=== PATIENT | male | born 1990 | race Two or more races ===

== ENCOUNTER 2018-09-04 12:27 | Emergency (ER) | payer SELFPAY ==
[~2018-09-04] VITALS: Ht 180.3 cm; Wt 79.4 kg
[2018-09-04] MEDS ORDERED: ONDANSETRON PF 4 MG/2 ML VIAL. ONE (13:13)
[2018-09-04] MEDS ORDERED: ONDANSETRON PF 4 MG/2 ML VIAL. IV ONE (13:15)
[2018-09-04] MEDS ORDERED: fentaNYL PF VIAL 100 MCG/2 ML VIAL IV ONE (13:15)
[2018-09-04] MEDS ORDERED: IV NORMAL SALINE 1000ML BAG 1,000 ML IV ONE (13:15)
[2018-09-04] MEDS ORDERED: KETOROLAC 15 MG/ML VIAL. IV ONE (13:15)
--- NOTE | 2018-09-04 13:20 | PHYS DOC ---
Past Medical History Past Medical History: No Pertinent History Past Surgical History: No Surgical History Alcohol Use: Occasionally Drug Use: None Adult General Chief Complaint Chief Complaint: SORE THROAT HPI HPI 28 y/o male was sent to ER from local clinic for further eval. for peritonsillar abscess. Pt has muffled voice and reports for past 3 days he has had increased throat pain/swelling with fever. Pt was given tylenol 650mg suppository at clinic at 1150 a.m. for fever as he was having difficulty swallowing. Review of Systems Review of Systems Constitutional: Reports fever/chills with generalized fatigue Eyes: Denies change in visual acuity, redness, or eye pain [] HENT: Denies nasal congestion/ear pain or pressure. Reports throat pain/ swelling with difficulty swallowing d/t pain and swelling Respiratory: Denies cough or shortness of breath [] Cardiovascular: Denies CP/palpitations GI: Denies abdominal pain, nausea, vomiting, bloody stools or diarrhea [] : Denies dysuria or hematuria [] Musculoskeletal: Denies back/neck pain or stiffness or joint pain [] Integument: Denies rash or skin lesions [] Neurologic: Denies headache, focal weakness or sensory changes. Denies dizziness All other systems were reviewed and found to be within normal limits, except as documented in this note. Current Medications Current Medications Current Medications Medications (Trade) Dose Ordered Sig/Dina Start Time Stop Time Status Last Admin Dose Admin Clindamycin Phosphate 50 ml @ 100 mls/hr 1X ONCE 09/04/18 13:30 09/04/18 13:59 DC 09/04/18 13:34 100 MLS/HR Fentanyl Citrate (Fentanyl 2ml Vial) 25 mcg 1X ONCE 09/04/18 13:15 09/04/18 13:19 DC 09/04/18 13:29 25 MCG Info (CONTRAST GIVEN -- Rx MONITORING) 1 each PRN DAILY PRN 09/04/18 14:00 09/04/18 16:59 DC Iohexol (Omnipaque 300 Mg/ml) 75 ml 1X ONCE 09/04/18 14:00 09/04/18 14:01 DC 09/04/18 14:00 75 ML Ketorolac Tromethamine (Toradol 15mg Vial) 15 mg 1X ONCE 09/04/18 13:15 09/04/18 13:19 DC 09/04/18 13:15 15 MG Ketorolac Tromethamine (Toradol 30mg Vial) 30 mg STK-MED ONCE 09/04/18 13:36 09/04/18 13:37 DC Methylprednisolone Sodium Succinate (SOLU-Medrol 125MG VIAL) 125 mg 1X ONCE 09/04/18 15:45 09/04/18 15:46 DC 09/04/18 15:45 125 MG Ondansetron HCl (Zofran) 4 mg 1X ONCE 09/04/18 13:15 09/04/18 13:19 DC 09/04/18 13:15 4 MG Sodium Chloride 1,000 ml @ 1,000 mls/hr 1X ONCE 09/04/18 13:15 09/04/18 14:14 DC 09/04/18 13:15 1,000 MLS/HR Allergies Allergies Allergies Coded Allergies Type Severity Reaction Last Updated Verified No Known Drug Allergies 09/04/18 No Physical Exam Physical Exam Constitutional: Well developed, well nourished, non-toxic appearance. Muffled voice- speech is understandable. Pt is spitting his secretions out reporting difficulty swallowing HENT: Normocephalic, atraumatic, bilateral ears normal, oropharynx moist, nose normal. Significant swelling to bilat. tonsils with more swelling lt side- pharyngeal/tonsillar erythema/swelling with exudate. Uvula swollen and deviated to left. Eyes: Pupils equal, conjunctiva normal, no discharge. [] Neck: Normal range of motion, no tenderness, supple Cardiovascular: Tachycardic rate/rhythm, no murmur [] Lungs & Thorax: Bilateral breath sounds clear to auscultation. Resp. equal/ nonlabored. Pt having no labored breathing and is maintaining his airway. Abdomen: Bowel sounds normal, soft, no tenderness, no masses, no pulsatile masses. [] Skin: Warm, dry, no erythema, no rash. [] Back: No tenderness, no CVA tenderness. [] Extremities: No tenderness, no cyanosis, no clubbing, ROM intact, no edema. [] Neurologic: Alert and oriented X 3, normal motor function, normal sensory function, no focal deficits noted. [] Psychologic: Affect normal, judgement normal, mood normal. [] Current Patient Data Vital Signs Vital Signs Date Time Temp Pulse Resp B/P (MAP) Pulse Ox O2 Delivery O2 Flow Rate FiO2 09/04/18 14:47 98.2 94 16 133/75 (94) 96 Room Air 98.2 Lab Values Laboratory Tests Test 09/04/18 13:05 White Blood Count 17.3 x10^3/uL (4.0-11.0) H Red Blood Count 5.26 x10^6/uL (4.30-5.70) Hemoglobin 15.6 g/dL (13.0-17.5) Hematocrit 44.6 % (39.0-53.0) Mean Corpuscular Volume 85 fL (79-100) Mean Corpuscular Hemoglobin 30 pg (25-35) Mean Corpuscular Hemoglobin Concent 35 g/dL (31-37) Red Cell Distribution Width 13.4 % (11.5-14.5) Platelet Count 229 x10^3/uL (140-400) Neutrophils (%) (Auto) 82 % (31-73) H Lymphocytes (%) (Auto) 10 % (24-48) L Monocytes (%) (Auto) 8 % (0-9) Eosinophils (%) (Auto) 0 % (0-3) Basophils (%) (Auto) 0 % (0-3) Neutrophils # (Auto) 14.1 x10^3uL (1.8-7.7) H Lymphocytes # (Auto) 1.8 x10^3/uL (1.0-4.8) Monocytes # (Auto) 1.3 x10^3/uL (0.0-1.1) H Eosinophils # (Auto) 0.0 x10^3/uL (0.0-0.7) Basophils # (Auto) 0.0 x10^3/uL (0.0-0.2) Segmented Neutrophils % 87 % (35-66) H Lymphocytes % 6 % (24-48) L Monocytes % 7 % (0-10) Platelet Estimate Adequate (ADEQUATE) Sodium Level 137 mmol/L (136-145) Potassium Level 3.8 mmol/L (3.5-5.1) Chloride Level 100 mmol/L (98-107) Carbon Dioxide Level 25 mmol/L (21-32) Anion Gap 12 (6-14) Blood Urea Nitrogen 12 mg/dL (8-26) Creatinine 1.1 mg/dL (0.7-1.3) Estimated GFR (Cockcroft-Gault) 79.7 Glucose Level 111 mg/dL (70-99) H Calcium Level 9.6 mg/dL (8.5-10.1) Laboratory Tests 09/04/18 13:05 Laboratory Tests 09/04/18 13:05 Microbiology 09/04/18 Anaerobic/Aerobic Culture, Resulted Pending 09/04/18 Anaerobic Culture Result 1 (BOBBY), Resulted Pending 09/04/18 Aerobic Culture - Final, Resulted 09/04/18 Aerobic Culture Result 1 (BOBBY) - Final, Resulted 09/04/18 Gram Stain - Final, Resulted 09/04/18 Gram Stain Result 1 (BOBBY) - Final, Resulted EKG EKG [] Radiology/Procedures Radiology/Procedures PROCEDURE: CT SOFT TISSUE NECK W/CONTRAST CT neck with intravenous contrast History: Left throat swelling. Peritonsillar abscess. Comparison: None. Technique: CT of the neck was performed after the administration of intravenous contrast, 75 mL Omnipaque-300. Exposure: One or more of the following individualized dose reduction techniques were utilized for this examination: 1. Automated exposure control 2. Adjustment of the mA and/or kV according to patient size 3. Use of iterative reconstruction technique Findings: Bilateral parotid and submandibular glands appear symmetric. The thyroid is symmetric. Multiple enlarged left middle left neck lymph nodes are seen measuring up to 1.0 cm in short axis, likely reactive. The major vessels of the neck enhance appropriately. There is diffuse enlargement of the left palatine tonsil extending along the left aspect of the pharyngeal mucosal space to the level of the epiglottis. No discrete, peripherally enhancing fluid collection is identified at this time. The findings are compatible with phlegmonous inflammation and soft tissue edema. The inflammatory change does deviate the airway to the right. Impression: 1. Diffuse enlargement of the left palatine tonsil extending along the left aspect of the pharyngeal mucosal space to the level of the epiglottis. No discrete, peripherally enhancing fluid collection is identified at this time. Consequently, findings are thought to represent phlegmonous inflammation/inflammatory soft tissue edema. 2. The inflammatory change involving the left mucosal space does mildly deviate the airway to the right. 3. Reactive neck lymphadenopathy. Electronically signed by: Shon Perez MD (09/04/2018 2:29 PM) [place] [id number] DICTATED and SIGNED BY: SHON PEREZ MD DATE: 09/04/18 1415 Course & Med Decision Making Course & Med Decision Making Pertinent Labs and Imaging studies reviewed. (See chart for details) During initial exam after pt opened mouth completely and following 2 times of pt say ah- pt began spitting up sero-sanguinous and purulent/foul odored drainage. 1418: BP 138/79 heart rate 95 temperature 98.9 and room air oxygen 95%. Patient reports is feeling much better than he did at time of arrival to ER. Patient is maintaining his airway. Patient does continue to state his throat feels swollen but reports his breathing has improved and he feels the swelling has improved significantly. Patient does continue to have occasional spit up of purulent drainage from his throat. On reevaluation patient's uvula is midline he does continue to have bilateral tonsillar swelling with erythema-swelling has improved since pt had abscess open and he spit up moderate amt of purulent/foul odor drainage. Pt remains nontoxic in appearance. Pt reports he can swallow easier but with foul tasting drainage he is still spitting out his secretions. 1504: Call placed to transfer line to discussed patient's case with ENT. 1535: Call returned from Dr. Mendez, ENT [facility]. Discussed pt's case and plan of care. He recommended steroids and antibiotics- he advised tx if inpt would have been to drain peritonsillar abscess which patient had done spontaneous during initial exam. This was discussed with Dr. Bertrand. 1545: Phone call was discussed with patient and he is comfortable with home discharge as discussed. Advised on signs and symptoms for him to return to ER for area patient will be given dose of IV Solu-Medrol while in the ER. Patient will be sent home with prescriptions for clindamycin and prednisone. Advised on use of Tylenol and ibuprofen for fever and pain control. Will provide small quantity of [place]. Will provide Dr. Steffanie Shay, ENT referral info on discharge paperwork. Patient at this time is in no visible distress. Patient is maintaining his airway with no difficulty swallowing or pooling of secretions. Patient reports he is feeling significantly better than at time of arrival to ER. On reexamination patient's uvula is midline-patient does have bilateral tonsillar swelling with mild erythema. Pharyngeal appearance much improved from initial exam. Patient's voice is less muffled. Speech is clear. VS have stabilized. Discharge instructions were discussed. Dragon Disclaimer Dragon Disclaimer This electronic medical record was generated, in whole or in part, using a voice recognition dictation system. Departure Departure Impression: Primary Impression: Peritonsillar abscess Disposition: 01 HOME, SELF-CARE Condition: STABLE Referrals: NO PCP (PCP) STEFFANIE SHAY MD Ear, nose, and throat doctor to call tomorrow for appointment- need to be seen in next 1-2 days for throat re-evaluation Patient Instructions: Peritonsillar Abscess Additional Instructions: Tylenol and ibuprofen as directed on container for fever/pain. If pain worsens you are being provided with [place] prescription- avoid tylenol if taking this medication. Plenty of water. Start prednisone prescription tomorrow. With any difficulty swallowing, shortness of air, or concerns return to Emergency Department for re-evaluation. Scripts Prednisone (PREDNISONE) 50 Mg Tablet 1 TAB PO DAILY, #5 TAB 0 Refills Start 09/05/18 Prov: ADELFO KENNY APRN 09/04/18 Clindamycin Hcl (CLINDAMYCIN HCL) 150 Mg Capsule 150 MG PO QID for 10 Days, #40 CAP 0 Refills 300mg QID x10 days Prov: ADELFO KENNY APRN 09/04/18 Hydrocodone/Apap 5-325 (NORCO 5-325 TABLET) 1 Each Tablet 1 TAB PO PRN Q6HRS PRN for PAIN, #10 TAB 0 Refills Prov: ADELFO KENNY APRN 09/04/18 ADELFO KENNY APRN Sep 04, 2018 13:20
[2018-09-04] MEDS ORDERED: CLINDAMYCIN 600MG PREMIX 50 ML IV ONE (13:30)
[2018-09-04 13:31] LABS: BASO % 0 % (0-3); EOS % 0 % (0-3); HEMATOCRIT 44.6 % (39.0-53.0); HEMOGLOBIN 15.6 g/dL (13.0-17.5); LYMPH # 1.8 x10^3/uL (1.0-4.8); LYMPH % 10 % (24-48); MEAN CORPUSCULAR HEMOGLOBIN 30 pg (25-35); MEAN CORPUSCULAR HGB CONC 35 g/dL (31-37); MEAN CORPUSCULAR VOLUME 85 fL (79-100); MONO # 1.3 x10^3/uL (0.0-1.1); MONO % 8 % (0-9); NEUT # 14.1 x10^3uL (1.8-7.7); NEUT % 82 % (31-73); PLATELET COUNT 229 x10^3/uL (140-400); RED BLOOD COUNT 5.26 x10^6/uL (4.30-5.70); RED CELL DISTRIBUTION WIDTH 13.4 % (11.5-14.5); WHITE BLOOD COUNT 17.3 x10^3/uL (4.0-11.0)
[2018-09-04] MEDS ORDERED: KETOROLAC 30 MG/ML VIAL. ONE (13:36)
[2018-09-04 13:41] LABS: CALCIUM 9.6 mg/dL (8.5-10.1); CREATININE 1.1 mg/dL (0.7-1.3); GFR 79.7; POTASSIUM 3.8 mmol/L (3.5-5.1)
[2018-09-04] MEDS ORDERED: IOHEXOL 300 MG/ML 100ML VIAL. IV ONE (14:00)
[2018-09-04] MEDS ORDERED: CONTRAST GIVEN. MC PRN (14:00)
--- NOTE | 2018-09-04 14:32 | RAD ---
CT neck with intravenous contrast History: Left throat swelling. Peritonsillar abscess. Comparison: None. Technique: CT of the neck was performed after the administration of intravenous contrast, 75 mL Omnipaque-300. Exposure: One or more of the following individualized dose reduction techniques were utilized for this examination: 1. Automated exposure control 2. Adjustment of the mA and/or kV according to patient size 3. Use of iterative reconstruction technique Findings: Bilateral parotid and submandibular glands appear symmetric. The thyroid is symmetric. Multiple enlarged left middle left neck lymph nodes are seen measuring up to 1.0 cm in short axis, likely reactive. The major vessels of the neck enhance appropriately. There is diffuse enlargement of the left palatine tonsil extending along the left aspect of the pharyngeal mucosal space to the level of the epiglottis. No discrete, peripherally enhancing fluid collection is identified at this time. The findings are compatible with phlegmonous inflammation and soft tissue edema. The inflammatory change does deviate the airway to the right. Impression: 1. Diffuse enlargement of the left palatine tonsil extending along the left aspect of the pharyngeal mucosal space to the level of the epiglottis. No discrete, peripherally enhancing fluid collection is identified at this time. Consequently, findings are thought to represent phlegmonous inflammation/inflammatory soft tissue edema. 2. The inflammatory change involving the left mucosal space does mildly deviate the airway to the right. 3. Reactive neck lymphadenopathy. Electronically signed by: Shon Palomino MD (09/04/2018 2:29 PM) [place] [id number]
[2018-09-04 14:34] LABS: % LYMPHS 6 % (24-48); % MONOS 7 % (0-10); % SEGS 87 % (35-66); PLT ESTIMATE ADEQUATE (ADEQUATE)
[2018-09-04 14:47] VITALS: BP 133/75
[2018-09-04] MEDS ORDERED: methylPREDNISolone SOD SUCC PF 125 MG/2 ML VIAL. IV ONE (15:45)
[2018-09-04] MEDS ORDERED: CLIN150C14 PO (16:04)
[2018-09-04] MEDS ORDERED: HYDR-971 PO (16:04)
[2018-09-04] MEDS ORDERED: PRED50TA PO (16:04)
== END 2018-09-04 16:20 | disposition home or self-care (01) ==
LOC: ER 12:27
DX: J36 Peritonsillar abscess (principal)
CPT/HCPCS: 36415; 70491; 80048; 85007; 85025; 87071; 87075; 96365; 96375; 99285; J1885; J2405; J2930; J3010; J3490; J7030; Q9967